=== PATIENT | female | born 1955 | race Hispanic/Latino ===

== ENCOUNTER 2019-10-31 06:25 | Day surgery (SDC) | payer MEDICARE ==
[~2019-10-31 06:25] MED LIST: SODIUM CHLORIDE 0.9% 500 ML 500 ML IV SCH
[2019-10-31 07:03] LABS: Hematocrit 36.9 % (30.3-42.9); Hemoglobin 12.8 gm/dl (10.1-14.3); Mean Corpuscular HGB Conc 35 % (30-34); Mean Corpuscular Volume 106 fl (79-97); Platelet Count 228 K/mm3 (140-440); Red Cell Distribution Width 13.7 % (13.2-15.2)
[2019-10-31 07:14] LABS: INR 0.9 (0.87-1.13)
[2019-10-31 07:15] LABS: Partial Thromboplastin Time 26.9 Sec. (24.2-36.6)
[2019-10-31 07:28] LABS: BUN/Creatinine Ratio 10; Blood Urea Nitrogen 8 mg/dL (7-17); Calcium 9.3 mg/dL (8.4-10.2); Hemolysis Index 13
[2019-10-31] MEDS ORDERED: HEPARIN/NS 5000 UNIT/500ML 1,000 ML IR ONE (07:51)
[2019-10-31] MEDS ORDERED: VERAPAMIL 5 MG/2 ML INJ ONE (07:52)
[2019-10-31] MEDS ORDERED: NITROGLYCERIN SYRINGE 3 ML ONE (07:52)
[2019-10-31] MEDS ORDERED: LIDOCAINE (2%) 20 MG/1 ML VIAL 20 ML MDV INFILTRATI ONE (07:52)
[2019-10-31] MEDS ORDERED: HEPARIN 10,000 UNITS/10 ML VIAL ONE (07:52)
[2019-10-31] MEDS ORDERED: MIDAZOLAM 2 MG/2 ML INJ ONE (07:53)
[2019-10-31] MEDS ORDERED: fentaNYL 100 MCG/2 ML INJ ONE (07:53)
--- NOTE | 2019-10-31 09:41 | Cardiac Catherization Report ---
PERIPHERAL ANGIOGRAM PROCEDURE DONE BY: Caesar Whitten MD CLINICAL INFORMATION: This is a 64-year-old female with history of drug abuse in the past, has hyperlipidemia, smoker, has claudication symptoms with ultrasound shows monophasic flow in the left lower arterial system suggesting iliac stenosis, here for peripheral angiogram. Procedure was done with moderate sedation, started at 8:36 and finished at 8:57, 19 minutes of moderate sedation. Procedure was done via the right radial artery, sterile technique, local anesthesia, 6-Cuban radial sheath inserted. I used a JR4 catheter and Glidewire to get into the descending aorta, exchanged for a long exchange wire, placed a long pigtail catheter in the distal abdominal aorta and did runoff. Findings were distal abdominal aorta was calcified, but patent with diffuse disease, bifurcates into a right common iliac artery that is patent. Left common iliac artery is 100% calcified, proximally by 15 mm of occlusion, then the bilateral internal and external iliacs are patent with mild calcification and luminal irregularities with moderate tortuosity. Bilateral common femoral artery and profunda and SFAs are patent from proximally and distally, bilateral popliteals are patent, 2-vessel runoff with anterior tibial and posterior tibial patent on both sides with sluggish flow. We removed the catheter over the guidewire, 6-Cuban radial sheath was discontinued. Radial dressing applied. No hematoma, no bleeding. SUMMARY: 1. Distal abdominal aorta calcified with diffuse disease. Left common iliac is calcified 50 mm with occlusion 100%, right common iliac is patent with mild diffuse calcified disease, bilateral internal iliac arteries are patent with mild diffuse calcified disease. 2. Bilateral common femoral arteries, bilateral SFAs and bilateral popliteals are patent with 2-vessel runoffs bilaterally. The patient will be evaluated for both surgery versus percutaneous evaluation. Continue risk factor modification. Discussed this with the patient and the patient's family. JOB# [id number] BRO/TETE
[2019-10-31] MEDS ORDERED: traMADol 50 MG TAB PO PRN (10:14)
[2019-10-31] MEDS ORDERED: HYDROcodone/ACETAMINOPHEN 5-325 MG TAB PO PRN (10:14)
--- NOTE | 2019-10-31 10:17 | Short Stay Summary ---
Short Stay Documentation Date of service: 10/31/19 - History H&P: obtained from office - Allergies and Medications Current Medications: Allergies No Known Allergies Allergy (Unverified 10/31/19 06:50) Home Medications Medication Instructions Recorded Confirmed Last Taken Type Aspirin [Adult Aspirin] 81 mg PO DAILY 10/31/19 10/31/19 10/31/19 05:00 History AtorvaSTATin [Lipitor] 10 mg PO DAILY 10/31/19 10/31/19 10/31/19 05:00 History Calcitonin,[place] (Nf) [Miacalcin 1 spray NS DAILY 10/31/19 10/31/19 10/31/19 05:00 History (Nf)] Clopidogrel [Plavix] 75 mg PO QDAY 10/31/19 10/31/19 10/31/19 05:00 History Meloxicam [Mobic] 15 mg PO DAILY 10/31/19 10/31/19 10/31/19 05:00 History Active Medications Sodium Chloride (Nacl 0.9% 500 Ml) 500 mls @ 50 mls/hr IV DIRECT ZAMZAM Stop: 10/31/19 23:59 - Brief post op/procedure progress note Date of procedure: 10/31/19 Pre-op diagnosis: pad Post-op diagnosis: same Procedure: see report Anesthesia: local Estimated blood loss: none Pathology: none - Disposition Condition at discharge: Good Disposition: [id number] TO HOME OR SELFCARE - Discharge Diagnoses (1) PAD (peripheral artery disease) Status: Chronic (2) Smoker unmotivated to quit Status: Chronic (3) Hyperlipemia, mixed Status: Chronic Short Stay Discharge Plan Activity: no restrictions Diet: low fat, low cholesterol, low salt Wound: keep clean and dry Follow up with: PRIMARY CARE, [Primary Care Provider] - 7 Days
[2019-10-31 13:04] VITALS: BP 128/62
== END 2019-10-31 14:20 | disposition home or self-care (01) ==
LOC: CATHLABREC 06:25
PROVIDERS: ATTEND Internal Medicine
DX: I70.0 Atherosclerosis of aorta (principal); I74.5 Embolism and thrombosis of iliac artery; I74.3 Embolism and thrombosis of arteries of the lower extremities; F17.210 Nicotine dependence, cigarettes, uncomplicated; E78.2 Mixed hyperlipidemia; J44.9 Chronic obstructive pulmonary disease, unspecified; M19.90 Unspecified osteoarthritis, unspecified site; Z79.899 Other long term (current) drug therapy; Z79.82 Long term (current) use of aspirin; Z98.42 Cataract extraction status, left eye; Z98.890 Other specified postprocedural states
CPT/HCPCS: 36200; 36415; 75630; 75716; 80048; 85027; 85610; 85730; 99156; C1769; C1894; J1644; J2250; J3010; J7040; 75625; Q9967